=== PATIENT | female | born 1980 | race Caucasian/White ===

== ENCOUNTER 2019-12-22 15:19 | Emergency (ER) | payer OTHER ==
[~2019-12-22] VITALS: Ht 144.8 cm; Wt 49.9 kg
--- NOTE | ~2019-12-22 | EKG ---
[place] [address] ELECTROCARDIOGRAM REPORT Name: WHIT BATRES Room: [facility]#: [id number] Admission: 12/22/19 Attend Phys: Discharge: 12/22/19 Date of : 82 Report #: [id number] THIS REPORT FOR: //name// [facility] ED Test Date: 2019-12-22 Test Time: 19:18:37 Pat Name: WHIT BATRES Department: Room: Gender: F [employer]: [place] : 1980 Requested By: Jazmine Torres Order Number: [id number] MD: Measurements Intervals [place] Rate: 71 P: -12 UT: 111 QRS: 17 QRSD: 91 T: -3 QT: 412 QTc: 448 Interpretive Statements Sinus rhythm Borderline short UT interval Borderline T abnormalities, inferior leads No previous ECG available for comparison [email or web address] By: 17 17 Epiphany Epiphany, MD /EPI
[2019-12-22] MEDS ORDERED: NORCO 5-325 TA1 EAC1 PO (18:04)
[2019-12-22 18:39] LABS: ABSOLUTE EOSINOPHILS 0.1 thou/uL (0.0-0.7); ABSOLUTE LYMPHOCYTES 2.4 thou/uL (0.8-5.3); ABSOLUTE MONOCYTES 0.6 thou/uL (0.0-1.2); BASOPHILS 0.4 %; EOSINOPHILS 0.8 %; HEMATOCRIT 34.6 % (37.0-47.0); HEMOGLOBIN 11.6 gm/dL (12.0-15.0); LYMPHOCYTES 23.8 %; MCH 27.9 pg (26.0-34.0); MCHC 33.6 g/dL (28.0-37.0); MCV 83.1 fL (80.0-100.0); MONOCYTES 5.8 %; MPV 7.4 fl. (7.2-11.1); NUCLEATED RBCS 0 /100WBC; PLATELET COUNT* 420 thou/uL (150-400); POLYS 69.2 %; RBC 4.16 mil/uL (4.20-5.00); RDW-CV 18.5 % (10.5-14.5); WBC 10.1 thou/uL (4.0-11.0)
[2019-12-22 19:03] LABS: CALCIUM 7.9 mg/dL (8.5-10.1); CREATININE 1.1 mg/dL (0.6-1.3)
[2019-12-22 19:07] LABS: POTASSIUM 2.8 mmol/L (3.5-5.1)
[2019-12-22 19:08] LABS: ALBUMIN 4.2 g/dL (3.4-5.0); TOTAL BILIRUBIN 0.3 mg/dL (<0.1-1.0); TOTAL PROTEIN 8.4 g/dL (6.4-8.2)
[2019-12-22] MEDS ORDERED: VISTARIL 25 MG25 M1 PO (20:27)
[2019-12-22] MEDS ORDERED: FLEXERIL PO (20:27)
[2019-12-22 20:43] VITALS: BP 125/85
== END 2019-12-22 20:44 | disposition home or self-care (01) ==
LOC: M.ERS 15:19
PROVIDERS: Physician Assistant
DX: S22.41XA Multiple fractures of ribs, right side, initial encounter for closed fracture (principal); S92.142A Displaced dome fracture of left talus, initial encounter for closed fracture; S16.1XXA Strain of muscle, fascia and tendon at neck level, initial encounter; R10.11 Right upper quadrant pain; R10.12 Left upper quadrant pain; I10 Essential (primary) hypertension; F17.210 Nicotine dependence, cigarettes, uncomplicated; Z88.0 Allergy status to penicillin; Z88.8 Allergy status to other drugs, medicaments and biological substances; Z90.710 Acquired absence of both cervix and uterus; Z87.442 Personal history of urinary calculi; V89.2XXA Person injured in unspecified motor-vehicle accident, traffic, initial encounter; Y93.89 Activity, other specified; Y92.89 Other specified places as the place of occurrence of the external cause; Y99.8 Other external cause status

== ENCOUNTER 2020-02-04 17:04 | Emergency (ER) | payer OTHER ==
[~2020-02-04] VITALS: Ht 144.8 cm; Wt 47.6 kg
[~2020-02-04 17:04] MED LIST: FLEXERIL PO; NORCO 5-325 TA1 EAC1 PO; VISTARIL 25 MG25 M1 PO
[2020-02-04] MEDS ORDERED: NORVASC 2.5 MG2.5 M1 PO (17:18)
[2020-02-04] MEDS ORDERED: ALPRAZOLAM XR3 MG PO (17:18)
[2020-02-04 18:24] LABS: ABSOLUTE BASOPHILS 0.1 thou/uL (0.0-0.2); ABSOLUTE LYMPHOCYTES 2.2 thou/uL (0.8-5.3); ABSOLUTE MONOCYTES 1.2 thou/uL (0.0-1.2); ABSOLUTE NEUTROPHILS 12.6 thou/uL (1.6-8.1); BASOPHILS 0.5 %; EOSINOPHILS 0.1 %; HEMOGLOBIN 11.6 gm/dL (12.0-15.0); MCH 28.1 pg (26.0-34.0); MCHC 34.2 g/dL (28.0-37.0); MCV 82.2 fL (80.0-100.0); MONOCYTES 7.3 %; MPV 7.9 fl. (7.2-11.1); NUCLEATED RBCS 0 /100WBC; PLATELET COUNT* 401 thou/uL (150-400); POLYS 78.1 %; RBC 4.13 mil/uL (4.20-5.00); RDW-CV 17.9 % (10.5-14.5); WBC 16.1 thou/uL (4.0-11.0)
[2020-02-04] MEDS ORDERED: FLAGYL500 M1 PO (18:33)
[2020-02-04] MEDS ORDERED: ZOFRAN ODT4 MG SUBLING (18:33)
[2020-02-04] MEDS ORDERED: CIPROFLOXACIN500 M1 PO (18:33)
[2020-02-04] MEDS ORDERED: NORCO 5-325 TA1 EAC1 PO (18:33)
[2020-02-04 18:40] LABS: CREATININE 2.3 mg/dL (0.6-1.3)
[2020-02-04 18:42] LABS: CALCIUM 17.4 mg/dL (8.5-10.1)
[2020-02-04 18:47] LABS: ALBUMIN 3.8 g/dL (3.4-5.0); TOTAL BILIRUBIN 0.2 mg/dL (<0.1-1.0); TOTAL PROTEIN 8.2 g/dL (6.4-8.2)
[2020-02-04] MEDS ORDERED: POTASSIUM20 PO (18:53)
[2020-02-04 18:55] VITALS: BP 157/88
== END 2020-02-04 18:55 | disposition home or self-care (01) ==
LOC: M.ERS 17:04
PROVIDERS: Family Medicine
DX: K52.9 Noninfective gastroenteritis and colitis, unspecified (principal); E87.6 Hypokalemia; I10 Essential (primary) hypertension; Z90.710 Acquired absence of both cervix and uterus; Z87.442 Personal history of urinary calculi

== ENCOUNTER 2020-09-11 04:53 | Emergency (ER) | payer OTHER ==
[~2020-09-11] VITALS: Ht 144.8 cm; Wt 41.7 kg
[~2020-09-11 04:53] MED LIST changes: +ALPRAZOLAM XR3 MG PO; +CIPROFLOXACIN500 M1 PO; +FLAGYL500 M1 PO; +NORVASC 2.5 MG2.5 M1 PO; +POTASSIUM20 PO; +ZOFRAN ODT4 MG SUBLING
[2020-09-11 05:21] LABS: HEMATOCRIT 35.1 % (37.0-47.0); HEMOGLOBIN 11.4 gm/dL (12.0-15.0); MCH 27.6 pg (26.0-34.0); MCHC 32.6 g/dL (28.0-37.0); MCV 84.6 fL (80.0-100.0); MPV 6.5 fl. (7.2-11.1); RBC 4.15 mil/uL (4.20-5.00); RDW-CV 18.4 % (10.5-14.5); WBC 10.7 thou/uL (4.0-11.0)
[2020-09-11] MEDS ORDERED: CARAFATE 1 GM TA1 GM PO (05:36)
[2020-09-11] MEDS ORDERED: OMEPRAZOLE20 M2 PO (05:36)
[2020-09-11 05:41] LABS: ALBUMIN 3.5 g/dL (3.4-5.0); CALCIUM 8.3 mg/dL (8.5-10.1); CREATININE 1.1 mg/dL (0.6-1.3); TOTAL BILIRUBIN 0.2 mg/dL (<0.1-1.0); TOTAL PROTEIN 7.7 g/dL (6.4-8.2)
[2020-09-11 05:45] LABS: POTASSIUM 2.7 mmol/L (3.5-5.1)
[2020-09-11 06:15] VITALS: BP 141/89
== END 2020-09-11 06:15 ==
LOC: M.ERS 04:53
PROVIDERS: Personal Emergency Response Attendant
DX: E87.6 Hypokalemia (principal); R11.2 Nausea with vomiting, unspecified; K27.9 Peptic ulcer, site unspecified, unspecified as acute or chronic, without hemorrhage or perforation; I10 Essential (primary) hypertension; Z90.710 Acquired absence of both cervix and uterus; Z87.442 Personal history of urinary calculi; Z88.6 Allergy status to analgesic agent; Z88.0 Allergy status to penicillin